=== PATIENT | male | born 1965 | race African-American/Black ===

== ENCOUNTER → 2018-10-22 | Outpatient (CLI) | payer OTHER ==
--- NOTE | 2018-10-22 11:33 | REP ---
RIGHT CLAVICLE: Two views. HISTORY: History of old trauma. Dislocated clavicle high school football injury. History of sclerotic lesion right clavicle. FINDINGS: AP and tube angled views of the right clavicle demonstrate normal alignment of the glenohumeral and acromioclavicular joints. There is minimal bony hypertrophy at the AC joint. There is a sclerotic area in the medial aspect of the left clavicle measuring 12-13 mm in greatest diameter. This it is difficult to evaluate due to overlapping rib structures. It may be a bone island or other sclerotic lesion. Reactive sclerosis is a possibility. The medial clavicle on the right is situated slightly higher than the left which may reflect the manubrioclavicular arthropathy. IMPRESSION: There is a 13 mm sclerotic area in the medial head of the right clavicle of uncertain significance. Consider CT scanning for further evaluation. Electronically Signed by Rishabh Patrick MD 10/22/2018 12:08 P
== END ==
LOC: M RAD 09:17
PROVIDERS: ATTEND Surgery
DX: M89.9 Disorder of bone, unspecified (principal)